=== PATIENT | female | born 1960 | race Caucasian/White ===

== ENCOUNTER 2020-02-07 13:38 | Inpatient (IN) | payer OTHER ==
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
--- NOTE | 2020-02-07 13:52 | BHS.RME ---
Substance Use & Tx History - Substance Use History Alcohol Substance amount: 1.5 bottles of wine Frequency of use: Daily Substance route: Oral Date of Last Use: 02/07/20 (started age 16) Nicotine Substance amount: never smoked Physical/Psych/Mental Status - Behavior General Behavior: Increased activity (restlessness, agitation) Eye Contact: Normal - Cooperativeness Cooperativeness: Cooperative - Thinking Thought Processes: Tight, Logical, Goal Directed - Physical Health Problems Is patient presently having any pain?: No Does patient presently have any injuries (include location): No Does patient currently have a fever: No Is patient : No CIWA Nausea/Vomitin Muscle Tremors: 3 Anxiety: 3 Agitation: 3 Paroxysmal Sweats: No Perspiration Orientation: 0-Oriented Tacttile Disturbances: 0-None Auditory Disturbances: 0-None Visual Disturbances: 4-Moderate Hallucinations Headache: 2-Mild CIWA-Ar Total Score: 17
[2020-02-07 14:55] VITALS: BMI 25.4
--- OUTSIDE RECORDS SUMMARY | 2020-02-07 15:18 | XMS ---
:1960 Author Organization [facility] Care Team Providers Name Role Phone WILLIAN JUVE MCGRATH/MSC Unavailable Unavailable ED STAFF PHYSICIAN Unavailable Unavailable JES ZAMORA Unavailable Unavailable ED STAFF PHYSICIAN Unavailable Unavailable TIMOTHY Unavailable Unavailable RICHARD Unavailable Unavailable Jeannie ESPANA Unavailable Unavailable MD MARILYN Unavailable Unavailable JOSEFA Unavailable Unavailable ALANNA Unavailable Unavailable MD YURI Unavailable Unavailable PASSARETTI Unavailable Unavailable [id number] Unavailable Unavailable ANDREINA Unavailable Unavailable RADHA Unavailable [...] is protected by Article 27-F of the [place] State Public Health law. If you continue you may haveaccess to information: Regarding HIV / AIDS; Provided by facilities licensed or operated by the [facility] Office of Mental Health; or Provided by the [facility] Office for People With Developmental Disabilities. If such information is present, then the following [facility] mandated warning applies: This information has been [...] law may result in a fine or mcc sentence or both. A general authorization for the release of medical or other information is NOT sufficient authorization for further disclosure. Encounters Encounter Providers Location Date Indications Data Source(s ) Outpatient Attender: SERA Busby 10/19/2019 [facility] ANDRE 02:24:00 PM Rogelio ZAMORAAdmitter: EDT SERA ZAMORAReferrer: SERA ZAMORA Emergency Attender: NICOLA ED H 10/12/2019 [facility] STAFF 06:28:00 PM Medical Sudheer naranjo PHYSICIANAttender: EDT - STAFF ED STAFF 10/12/2019 PHYSICIANAdmitter: 08:34:00 PM NICOLA ED STAFF EDT PHYSICIAN Patient discharged. Outpatient Attender: SULAIMAN ASHLEY 09/24/2019 09:30:00 [facility] SANDERSAdmitter: PENNY AM EDT - [address] [place] [address] 08:11:00 AM EDT Patient discharged. Outpatient Attender: ANTHONY ASHLEY 06/24/2019 09:14:00 [facility] REIDAttender: LAKSHMI AM EST - 10/19/2019 [facility] ABRAHAMZOSAdmitter: CARLY 08:47:00 AM EDT RICHARD Patient discharged. Outpatient Attender: LAKSHMI ASHLEY 06/22/2019 01:13:00 [facility] ROSARIOZOSAdmitter: SUDHIR PM EST - [facility] PM EST Patient discharged. Attender: 06/22/2019 [facility] [id number] 01:13:[address] [facility] [address] Attender: ANTHONY Shepherdender: MARCELA [facility] RUSSELLKYAdmitter: MONSE ESPANA 10:36:00 AM [facility] [place]11[place] 02:57:00 PM EST Patient discharged. Attender: 05/28/2019 [facility] [id number] 10:36:00 AM [facility]_6766 Outpatient Attender: ANTHONY Shepherdender: [facility] 05/04/2019 [facility] SLADEHAYLIE ESTHERdmitter: CATHRYN 10:27:00 AM [facility] 05/27/2019 01:32:00 PM EST Patient discharged. Attender: 05/04/2019 [facility] [id number] 10:27:00 AM [facility]_6766 Outpatient Attender: LAKSHMI [facility] 04/22/2019 [facility] CATHRYN [facility] 02:36:00 PM [facility] 04/22/2019 03:18:00 PM EST Patient discharged. Attender: 04/22/2019 [facility] [id number] 02:36:00 PM [facility]_6766 Outpatient Attender: LAKSHMI Sarmientoitter: [facility] 01[facility]00 PM EST Hospita l Attender: 04/15/2019 [facility] [id number] 01:32:00 PM [facility]_6766 Outpatient Attender: LAKSHMI Sarmientoitter: [facility] 9 [facility] ALANNA 10:57:00 AM [facility] 03/24/2019 01:57:00 PM EST Patient discharged. Attender: 03/22/2019 [facility] [id number] 10:57:00 AM [facility]_6766 Outpatient Attender: LAKSHMI MCCALLdmitter: GABI 9 [facility] DORSEY 12:41:00 PM EST - Hospit al 03/18/2019 10:56:00 AM EST Patient discharged. Attender: [id number] 2018 12:41:00 [facility] CHAN_6766 PM EST Hospital Medications Medication Brand Start Product Dose Route Administrative Pharmacy [facility] Indications Reaction Description Data Name Date Form [...] Antabus e - [facility] 250 MG Oral 2019 Table ed 250 MG ORAL [facility] Tablet 250 MG 12:00: t Tablet Hospita l [Antabuse] ORAL 00 AM Tablet EST Escitalopra Escita ORAL complet Escita lopram [facility] m 10 MG lopram 2019 Table ed - 10 MG ORAL [facility] Oral Tablet - 10 12:00: t Tablet Hosp ital MG 00 AM ORAL EST Tablet gabapentin Gabape ORAL complet Gabapen tin - [facility] 300 MG Oral ntin 2019 Capsu ed 300 MG ORA L [...] to [employer] [facility] ormation type [place] UNITED [id number] SP [id number] HEALTHCARE PPO UNITED [id number] SP [id number] HEALTHCARE PPO [place] O [id number] 01 [id number] HEALTHCARE OPD O LOCAL O [id number] SELF PAY 0000 Self 0000 UNITED [id number] Self [id number] BEHAVIORAL HEALTH SELF PAY 0000 Self 0000 UNITED [id number] Self [id number] BEHAVIORAL HEALTH SELF PAY 0 Self 0 SELF PAY 000 Self 000 SELF PAY 0000 Self 0000 SELF PAY 0 Self 0 SELF PAY 0 Self 0 SELF PAY 0000 Self 0000 SELF PAY 0 Self 0 SELF PAY 0 Self 0 Problems, Conditions, and Diagnoses Code Display Name Description Problem Type Effective Data Dates Source(s) 96351884 Alcohol abuse Alcohol abuse Complaint 09/24/2019 [facility] (disorder) 12:00:00 PM [facility] [id number] Generalized Generalized Complaint 09/24/2019 [facility] anxiety disorder anxiety disorder 12:00:00 PM [facility] (disorder) [facility] [id number] 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 12:00:00 PM [facility] episodes, mild episodes, mild EDT Hospit al (disorder) 60749572 Alcohol abuse Alcohol abuse Complaint 09/24/2019 [facility] (disorder) 12:00:00 PM [facility] [id number] Generalized Generalized Complaint 09/24/2019 [facility] anxiety disorder anxiety disorder 12:00:00 PM [facility] (disorder) [facility] [id number] 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 12:00:00 PM [facility] episodes, mild episodes, mild EDT Hospit al (disorder) Z01.818 Encounter for ENCOUNTER FOR Diagnosis 10/19/2019 [facility] Sarah morse other OTHER 02:24:00 PM Medical preprocedural PREPROCEDURAL [...] Interpretation Code Description Data Source(s) Body weight 70.602736 kg 70.800381 kg [facility] Body temperature 35.607731 35.779026 Gin [facility] Respiratory rate 18 /min 18 /min [facility] Oxygen saturation 97 % 97 % [facility] Romario shultz in Arterial blood Medical Center by Pulse oximetry Heart rate 90 /min 90 /min [facility] Body height 160.161015 160.057402 cm [facility] cm Medical Center Diastolic blood 97 mm[Hg] 97 mm[Hg] [facility] pressure Medical Center Systolic blood 126 mm[Hg] 126 mm[Hg] [facility] pressure Medical Center Body mass index 27.3 kg/m2 27.3 kg/m2 [facility] Rommel salazar (BMI) [Ratio] Medical Kaitlynn ter
--- NOTE | 2020-02-07 15:38 | HP ---
CIWA Score Nausea/Vomitin-Int. Nausea w/Dry Heave Muscle Tremors: 4-Moderate,w/Arms Extend Anxiety: 3 Agitation: 4-Moderately Restless Paroxysmal Sweats: No Perspiration Orientation: 0-Oriented Tacttile Disturbances: 0-None Auditory Disturbances: 0-None Visual Disturbances: 4-Moderate Hallucinations (intermittent in the last few days) Headache: 1-Very Mild CIWA-Ar Total Score: 20 - Admission Criteria OASAS Guidelines: Admission for Medically Managed Detox: Requires at least one of the followin. CIWA greater than 12 2. Seizures within the past 24 hours 3. Delirium tremens within the past 24 hours 4. Hallucinations within the past 24 hours 5. Acute intervention needed for co occurring medical disorder 6. Acute intervention needed for co occurring psychiatric disorder 7. Severe withdrawal that cannot be handled at a lower level of care (continued vomiting, continued diarrhea, abnormal vital signs) requiring intravenous medication and/or fluids 8. Patient presents the following: CIWA greater than 12 Admission Criteria Met: Admission criteria met Admitting History and Physical - Admission History of Present Illness: Pt is a 59 yo F presenting for detox from alcohol; "alcohol detox." Pt reports she was here yesterday and left because she had a "nasty interaction" with a provider. Otherwise, pt has not been seen at [facility] previously. Pt reports going to [place] detox in [place] within the last 2 years (possibly July, pt has difficult recalling); pt reports going to rehab for 1 week afterwards (limited d/t insurance). Pt reports no significant period of time being sober after this. Pt reports she was sober for 3 years prior to recent to ongoing use within the last 2 years; she reports AA and rehab helped her during that time. Pt reports sporadic blackouts; last one was last week. Pt reports having a benzodiazepine administered for withdrawal while she was in the ED 1 week ago. PMH - iron deficiency anemia (s/p iron infusion 2 weeks ago; also with hemorrhoid banding done 2 weeks ago as source of KAYLEEN), possible hx of alcohol hepatitis (per pt, she saw GI last week and was told she had elevated LFTs) PSH - gastric bypass, appendectomy, cholecystectomy , mid-urethral sling, R rotator cuff surgery (after tear) Psych - depression, anxiety, insomnia (gabapentin 400 mg qhs. remeron 45 g qhs) Soc/Domiciled - lives in the [place] alone with her cat. Legal - none Substance Use & Tx History - Substance Use History Alcohol Substance amount: 1.5 bottles of wine Frequency of use: Daily Substance route: Oral Date of Last Use: 02/07/20 (started age 16) Nicotine Substance amount: never smoked History Source: Patient Limitations to Obtaining History: No Limitations - Past Medical History ...: No - Smoking History Smoking history: Never smoked Admission ROS S - [facility] Allergies/Adverse Reactions: Allergies Allergy/AdvReac Type Severity Reaction Status Date / Time No Known Allergies Allergy Verified 02/07/20 14:53 - Ebola screening Have you traveled outside of the country in the last 21 days: No Have you been sick,other than usual withdrawal symptoms: No Do you have a fever: No - Review of Systems Constitutional: Chills (intermittent) EENT: reports: No Symptoms Reported Respiratory: reports: No Symptoms reported Cardiac: reports: No Symptoms Reported GI: reports: Constipated (pt reports chronic constipation; last BM today but reports minimal stool excretion), Nausea (dry heaving), Abdominal cramping (intermittently with constipation) : reports: No Symptoms Reported Musculoskeletal: reports: No Symptoms Reported Integumentary: reports: No Symptoms Reported Neuro: reports: Tremors (moderate tremors with arms extended), Weakness (generalized weakness) Endocrine: reports: No Symptoms Reported Hematology: reports: Anemia (hx of iron deficiency anemia (2/2 hemorrhoid bleeding)), Easy Bruising (no definitive dx regarding easy bruising) Psychiatric: reports: Orientated x3, Agitated (restless), Anxious, Depressed (pt reports feeling hopeless (no SI/HI); no previous SAs in past) Patient History - Patient Medical History Hx Asthma: No Hx Chronic Obstructive Pulmonary Disease (COPD): No Hx Cardiac Disorders: No Hx Hypertension: No Hx Seizures: No Hx Diabetes: No Hx Gastrointestinal Disorders: No Hx Genitourinary Disorders: No Hx Sexually Transmitted Disorders: No Hx Renal Disease (ESRD): No Hx Depression: Yes Hx Suicide Attempt: No Hx Schizophrenia: No - Patient Surgical History Past Surgical History: Yes Hx Appendectomy: Yes Hx Cholecystectomy: Yes Hx Orthopedic Surgery: Yes (R rotator cuff repair) Other Surgical History: Gastric bypass - PPD History Previous Implant?: Yes Documented Results: Negative w/o proof Implanted On Prior [facility] Admission?: No - Reproductive History Patient : No - Smoking Cessation Smoking history: Never smoked Admission Physical Exam S - Vital Signs Vital Signs: Vital Signs - 24 hr 02/07/20 14:54 Temperature 96.6 F L Pulse Rate 106 H Respiratory 12 Rate Blood Pressure 140/93 - Physical General Appearance: Yes: No Apparent Distress, Nourished, Appropriately Dressed HEENTM: Yes: EOMI, Hearing grossly Normal, Normocephalic, Normal Voice Respiratory: Yes: Chest Non-Tender, Lungs Clear, Normal Breath Sounds, No Respiratory Distress, No Accessory Muscle Use Neck: Yes: Supple, Trachea in good position Breast: Yes: Breast Exam Deferred Cardiology: Yes: Regular Rhythm, Regular Rate Abdominal: Yes: Normal Bowel Sounds, Non Tender, Flat, Soft, Hernia (ventral hernia (above umbilical area) - non-tender to palpation; pt reports it was seen by PCP 1 week ago) Genitourinary: Yes: Other (deferred) Back: Yes: Normal Inspection Musculoskeletal: Yes: full range of Motion, Gait Steady Extremities: Yes: Normal Inspection, Normal Range of Motion, Non-Tender, Tremors (moderate with extended arms) Neurological: Yes: Fully Oriented, Alert, Motor Strength 5/5, Normal Mood/Affect, Normal Response Integumentary: Yes: Normal Color, Dry, Warm - Diagnostic (1) Alcohol dependence Current Visit: Yes Status: Acute Qualifiers: Substance use status: in withdrawal Complication of substance-induced cond ition: uncomplicated Qualified Code(s): F10.230 - Alcohol dependence with withdrawal, uncomplicated Comment: intermittent perceptual disturbance, none at time of examination (2) Iron deficiency anemia Current Visit: Yes Status: Chronic Qualifiers: Iron deficiency anemia type: chronic blood loss Qualified Code(s): D50.0 - Iron deficiency anemia secondary to blood loss (chronic) Comment: pt reports d/t chronic rectal bleeding from hemorrhoids Cleared for Admission S - Detox or Rehab [facility] Level of Care: Medically Managed Detox Regimen/Protocol: Ativan Breathalyzer - Breathalyzer Breathalyzer: 0.149 Urine Drug Screen - Test Device Lot number: [id number] Expiration date: 08/03/21 - Control Is test valid?: Yes - Results Drug screen NEGATIVE: No Urine drug screen results: BZO-Benzodiazepines Inpatient Rehab Admission - Rehab Decision to Admit Inpatient rehab admission?: No
[2020-02-07] MEDS ORDERED: IBUPROFEN 400 MG TABLET (FP) PO PRN (15:59)
[2020-02-07] MEDS ORDERED: NICOTINE POLACRILEX 2 MG GUM BUC PRN (15:59)
[2020-02-07] MEDS ORDERED: BISMUTH SUBSALICYLATE 524 MG/30 ML UD PO PRN (15:59)
[2020-02-07] MEDS ORDERED: ONDANSETRON *ODT* 4 MG TABLET SL PRN (15:59)
[2020-02-07] MEDS ORDERED: MAGNESIUM CITRATE 300 ML BOTTLE PO PRN (15:59)
[2020-02-07] MEDS ORDERED: MAG HYDROX/AL HYDROX/SIMETH 30 ML UNIT-DOSE CUP PO PRN (15:59)
[2020-02-07] MEDS ORDERED: MAGNESIUM HYDROX 2400MG/30ML ORAL SUSPENSION 30 ML CUP PO PRN (15:59)
[2020-02-07] MEDS ORDERED: ACETAMINOPHEN 325 MG TABLET (FP) PO PRN ×2 (15:59)
[2020-02-07] MEDS ORDERED: LORazepam 1 MG TABLET PO PRN (15:59)
[2020-02-07] MEDS ORDERED: MENTHOL/PHENOL 1 EACH UD MM PRN (15:59)
[2020-02-07] MEDS ORDERED: METHOCARBAMOL 500 MG TABLET PO PRN (15:59)
[2020-02-07 17:05] LABS: HEMATOCRIT 36.8 % (32.4-45.2); HEMOGLOBIN 11.4 GM/dL (10.7-15.3); MCH 31.4 pg (25.7-33.7); MCHC 31.1 g/dl (32.0-36.0); MEAN CELL VOLUME 100.9 fl (80-96); MEAN PLT VOLUME 9.3 fl (7.5-11.1); PLATELET COUNT 160 K/MM3 (134-434); RBC 3.64 M/mm3 (3.60-5.2); RDW 19.1 % (11.6-15.6); WHITE BLOOD COUNT 3.4 K/mm3 (4.0-10.0)
[2020-02-07 17:08] LABS: BILIRUBIN,TOTAL 4.2 mg/dL (0.2-1); BLOOD UREA NITROGEN 4.8 mg/dL (7-18); CALCIUM 8.3 mg/dL (8.5-10.1); CREATININE 0.5 mg/dL (0.55-1.3); POTASSIUM 4.1 mmol/L (3.5-5.1); TOT PROT 6.3 g/dl (6.4-8.2)
[2020-02-07] MEDS: hydrOXYzine PAMOATE 25 MG CAPSULE (FP) PO SCH ×2 (17:18→22:19)
[2020-02-07] MEDS: LORazepam 2 MG TABLET PO SCH ×2 (17:18→22:18)
[2020-02-07] MEDS ORDERED: THIAMINE HCL 100 MG TABLET (FP) PO SCH (22:00)
[2020-02-07] MEDS ORDERED: MELATONIN 5 MG TABLETS PO SCH (22:00)
[2020-02-07] MEDS ORDERED: GABAPENTIN 300 MG CAPSULE PO SCH (22:00)
[2020-02-08] MEDS: LORazepam 2 MG TABLET PO SCH ×2 (05:29→10:04)
[2020-02-08] MEDS: hydrOXYzine PAMOATE 25 MG CAPSULE (FP) PO SCH ×3 (05:29→13:26)
--- NOTE | 2020-02-08 08:31 | PN ---
Teaching Attending Note Name of Resident: Sandi Petersen ATTENDING PHYSICIAN STATEMENT I saw and evaluated the patient. I reviewed the resident's note and discussed the case with the resident. I agree with the resident's findings and plan as documented. SUBJECTIVE: OBJECTIVE: ASSESSMENT AND PLAN: 1. Alcohol use disorder, withdrawal 2. Hx of hepatitis Plan 1. Ativan detox protocol
[2020-02-08] MEDS ORDERED: PRENATAL VITAMINS W/ FOLIC ACID TABLET (FP) PO SCH (10:00)
--- NOTE | 2020-02-08 10:09 | EKG ---
Test Reason : Blood Pressure : / mmHG Vent. Rate : 079 BPM Atrial Rate : 079 BPM P-R Int : 164 ms QRS Dur : 060 ms QT Int : 402 ms P-R-T Axes : 012 034 047 degrees QTc Int : 460 ms NORMAL SINUS RHYTHM NORMAL ECG NO PREVIOUS ECGS AVAILABLE Confirmed by MD Ron, Javon ([id number]) on 02/08/2020 10:09:20 AM Referred By: MARIN Confirmed By:Javon Velasquez MD
--- NOTE | 2020-02-08 10:15 | CONSULT ---
[facility] Psychiatric Consult - Data Date of interview: 02/08/20 Admission source: [facility] Identifying data: Patient is a 59 year old single female, mother of one, currently on disability but is employed. This is patient's first admission to detox at [facility]. Patient admitted to for alcohol dependence. Substance Abuse History: Substance Use History. Alcohol. Substance amount: 1.5 bottles of wine. Frequency of use: Daily. Substance route: Oral. Date of Last Use: 02/07/20 (started age 16). Nicotine. Substance amount: never smoked Medical History: iron deficiency anemia , gastric bypass, appendectomy, cholecystectomy , mid-urethral sling, R rotator cuff surgery (after tear) Psychiatric History: Patient's first psychiatric contact was five years ago after seeing a private psychiatrist in [place]. Ms. Price states that she was diagnosed with depression + anxiety and treated with prozac and effexor. She discontinued treated after one year and then saw an health information specialist at [facility] for two years who prescribed her Wellbutrin 300mg Xl. Patient then received outpatient psychiatric care at [place] in [facility] and states that she was prescribed Remeron 45mg HS and gabapentin 900mg which she continues to receive today from her primary care physician. No reported history of psychiatric hospitalizations and suicide attempt. At present patient reports stable mood. Physical/Sexual Abuse/Trauma History: denies. Mental Status Exam - Mental Status Exam Alert and Oriented to: Time, Place, Person Cognitive Function: Good Patient Appearance: Well Groomed Mood: Withdrawn Affect: Mood Congruent Patient Behavior: Appropriate, Cooperative Speech Pattern: Appropriate Voice Loudness: Normal Thought Process: Intact, Goal Oriented Thought Disorder: Not Present Hallucinations: Denies Suicidal Ideation: Denies Homicidal Ideation: Denies Insight/Judgement: Poor Sleep: Poorly Appetite: Fair Muscle strength/Tone: Normal Gait/Station: Normal Psychiatric Findings - Problem List ([place] 1, 2,3) (1) History of depression Current Visit: Yes Status: Chronic (2) Alcohol dependence Current Visit: Yes Status: Acute Qualifiers: Substance use status: in withdrawal Complication of substance-induced condition: uncomplicated Qualified Code(s): F10.230 - Alcohol dependence with withdrawal, uncomplicated Comment: intermittent perceptual disturbance, none at time of examination - Initial Treatment Plan Initial Treatment Plan: Psychoeducation provided. Rehab in progress. Will order Remeron 45mg HS. Gabapentin 600mg HS ordered by resident. Benefits and side effects discussed. Verbal consent given.
--- NOTE | 2020-02-08 10:28 | PN ---
S CIWA - CIWA Score Nausea/Vomitin-Mild Nausea/No Vomiting Muscle Tremors: 3 Anxiety: 3 Agitation: 1-Slight > Activity Paroxysmal Sweats: 1-Minimal Palms Moist Orientation: 2-Disoriented Date<2 days (date of week day of month) Tacttile Disturbances: 0-None Auditory Disturbances: 0-None Visual Disturbances: 2-Mild Sensitivity Headache: 2-Mild CIWA-Ar Total Score: 15 [facility] Progress Note (SOAP) Subjective: 59 years old female was admitted on 02/07/20 for alcohol withdrawal sx management treating with ativan detox regiment feels tired prefers to sleep longer in bed "less tremor" than yesterday ekg no comparison encourage personal hygiene limited conversation with staff covid - 19 order communications writer call lab [phone] no specimen communications writer call [phone] specimen will be sent to lab Objective: 02/08/20 10:30 Vital Signs - 24 hr 02/07/20 02/07/20 02/07/20 14:54 17:05 20:43 Temperature 96.6 F L 97.1 F L 97.1 F L Pulse Rate 106 H 129 H 62 Respiratory 12 18 18 Rate Blood Pressure 140/93 118/85 133/93 O2 Sat by Pulse 95 Oximetry (%) 02/08/20 02/08/20 06:34 08:56 Temperature 98.4 F 96.9 F L Pulse Rate 73 78 Respiratory 18 18 Rate Blood Pressure 138/84 109/76 O2 Sat by Pulse 98 98 Oximetry (%) Laboratory Tests 02/07/20 02/07/20 02/07/20 15:30 15:30 15:30 WBC 3.4 L RBC 3.64 Hgb 11.4 Hct 36.8 MCV 100.9 H MCH 31.4 MCHC 31.1 L RDW 19.1 H Plt Count 160 MPV 9.3 Sodium 142 Potassium 4.1 Chloride 106 Carbon Dioxide 27 Anion Gap 8 BUN 4.8 L Creatinine 0.5 L Est GFR (CKD-EPI)AfAm 121.07 Est GFR (CKD-EPI)NonAf 104.46 Random Glucose 100 Calcium 8.3 L Total Bilirubin 4.2 H AST 576 H ALT 150 H Alkaline Phosphatase 373 H Total Protein 6.3 L Albumin 3.0 L Syphilis Serology Non-reactive 02/08/20 10:31 ast elevation repeat ast covid pending 02/08/20 10:38 Assessment: 02/08/20 10:39 alcohol withdrawal Plan: ativan regiment
[2020-02-08 13:57] VITALS: BP 124/88; PULSE 69; TEMP 96.1
--- NOTE | 2020-02-08 17:03 | DS ---
[facility] Detox Discharge Summary Admission Date: 02/07/20 - History Additional Comments: 59 y.o. female admitted 02/07/2020 states she is leaving the facility , reason : " too loud , too noisy , too cold , disrespectful " , planning to return to PCP office in [facility] in the a.m. Denies further medical assistance . Ambulating freely on the unit , + UE tremors . Denies medical complaints . Requesting rx for Ativan. Pt was educated about the risks of leaving prior to the completion of tx, including seizures, overdose , coma and . Pt indicated an understanding of education and states she wanted to proceed with d/c , requesting her belongings. Vital Signs - 24 hr 02/07/20 02/07/20 02/08/20 17:05 20:43 06:34 Temperature 97.1 F L 97.1 F L 98.4 F Pulse Rate 129 H 62 73 Respiratory 18 18 18 Rate Blood Pressure 118/85 133/93 138/84 O2 Sat by Pulse 95 98 Oximetry (%) 02/08/20 02/08/20 08:56 13:57 Temperature 96.9 F L 96.1 F L Pulse Rate 78 69 Respiratory 18 18 Rate Blood Pressure 109/76 124/88 O2 Sat by Pulse 98 97 Oximetry (%) - Physical Exam Results Vital Signs: Vital Signs Temperature 96.1 F L 02/08/20 13:57 Pulse Rate 69 02/08/20 13:57 Respiratory Rate 18 02/08/20 13:57 Blood Pressure 124/88 02/08/20 13:57 O2 Sat by Pulse Oximetry (%) 97 02/08/20 13:57 - Medication Discharge Medications: Ambulatory Orders Gabapentin [Neurontin] 900 mg PO HS 02/06/20 Mirtazapine 45 mg PO HS 02/06/20 - AMA Did Patient Leave Against Medical Advice: Yes
[2020-02-08] MEDS ORDERED: MELATONIN 5 MG TABLETS PO SCH (22:00)
[2020-02-08] MEDS ORDERED: MIRTAZAPINE 15 MG TABLET (FP) PO SCH (22:00)
[2020-02-09] MEDS ORDERED: LORazepam 1 MG TABLET PO SCH (05:00)
[2020-02-10] MEDS ORDERED: LORazepam 0.5 MG TABLET PO PRN
[2020-02-10] MEDS ORDERED: LORazepam 0.5 MG TABLET PO SCH (05:00)
[2020-02-11] MEDS ORDERED: LORazepam 0.5 MG TABLET PO ONE (05:00)
== END 2020-02-08 17:15 | disposition left against medical advice (07) | DRG 894 ==
LOC: YASAS 13:38 → Y3N 15:12
PROVIDERS: ADMIT Allergy & Immunology; ATTEND Allergy & Immunology
PROC: HZ2ZZZZ Detoxification Services for Substance Abuse Treatment (ICD-10-PCS; principal; 2020-02-07)
DX: F10.230 Alcohol dependence with withdrawal, uncomplicated (principal); F32.9 Major depressive disorder, single episode, unspecified; F41.9 Anxiety disorder, unspecified; G47.00 Insomnia, unspecified; D50.0 Iron deficiency anemia secondary to blood loss (chronic); Z98.84 Bariatric surgery status; Z87.19 Personal history of other diseases of the digestive system; Z90.49 Acquired absence of other specified parts of digestive tract; Z87.448 Personal history of other diseases of urinary system
CPT/HCPCS: 36415; 80053; 85027; 86780; 93005; 93010; C9803; U0003